=== PATIENT | female | born 1925 | race Caucasian/White ===

== ENCOUNTER 2016-07-07 17:22 | Emergency (ER) | payer MEDICARE ==
[~2016-07-07 17:22] MED LIST: /GLIM2TA; /PANT40TA; /WARF25TA; ACET65TA; CALC600T10; CENTTAB47; COLA100C2; FERR325T; LIPI20TA; METF750T; MILKSUS; OCUVITE; PERC5TAB8; SIMV5TAB2; VITAMIN A&D OINTMENT; metamucil
[2016-07-07] MEDS ORDERED: METO25TA74 (17:42)
[2016-07-07] MEDS ORDERED: PROC20004 (17:42)
[2016-07-07] MEDS ORDERED: CALC1CAP31 (17:42)
[2016-07-07] MEDS ORDERED: FURO40TA2 (17:42)
[2016-07-07] MEDS ORDERED: GLIM2TAB (17:42)
[2016-07-07 18:16] VITALS: O2SAT 96
[2016-07-07] MEDS ORDERED: ACETAMINOPHEN TAB 650MG DOSE (2X325MG) PO ONE (19:45)
[2016-07-07 19:56] LABS: BASO % 0.3 % (0.0-1.0); EOS # 0.1 K/mm3 (0.0-0.50); EOS % 1.5 % (0.0-3.0); LARGE UNSTAINED CELL # 0.1 K/mm3 (0.0-0.4); LARGE UNSTAINED CELL % 2.8 % (0.0-4.0); LYMPH # 0.9 K/mm3 (1.5-4.5); LYMPH % 15.7 % (24.0-44.0); MEAN CORPUSCULAR HEMOGLOBIN 31.2 pg (27.0-33.0); MEAN CORPUSCULAR HGB CONC 31.9 g/dl (32.0-36.5); MEAN CORPUSCULAR VOLUME 97.9 fl (80.0-96.0); MONO # 0.3 K/mm3 (0.0-0.8); MONO % 6.7 % (0.0-5.0); NEUTROPHILS # 3.7 K/mm3 (1.8-7.7); RED CELL DISTRIBUTION WIDTH 14.2 % (11.5-14.5); WHITE BLOOD COUNT 5.1 K/mm3 (4.0-10.0)
[2016-07-07 20:14] LABS: ANION GAP 10 MEQ/L (8-16); BLOOD UREA NITROGEN 67 MG/DL (7-18); CALCIUM LEVEL 8.8 MG/DL (8.8-10.2); CARBON DIOXIDE LEVEL 21 MEQ/L (21-32); CHLORIDE LEVEL 112 MEQ/L (98-107); CREATININE FOR GFR 5.95 MG/DL (0.55-1.02); GLOMERULAR FILTRATION RATE 7.1 (>32); GLUCOSE, FASTING 50 MG/DL (83-110); POTASSIUM SERUM 4.2 MEQ/L (3.5-5.1); SODIUM LEVEL 143 MEQ/L (136-145)
[2016-07-07 20:17] LABS: PLATELET COUNT, AUTOMATED 94 k/mm3 (150-450)
[2016-07-07] MEDS ORDERED: DEXTROSE 50% 50 ML VIAL IV ONE (20:45)
[2016-07-07] MEDS ORDERED: IBUPROFEN 600 MG TAB PO ONE (21:45)
--- NOTE | 2016-07-07 21:50 | REPUSA ---
CT of the chest without contrast Clinical statement: fever, cough. Technique: Multiple axial CT images were obtained with 5 mm cuts through the chest without administra tion of contrast. No comparison is available. Findings: There is no thoracic lymphadenopathy. The visualized portions of the thyroid gland demonst rate a large complex nodule in the left lobe measuring 3.0 x 2.5 cm.. Moderate diffuse atheroscleroti c calcifications are seen throughout the thoracic aorta. There is no evidence of aneurysm. Tracheosto my tube is in place. There are no pericardial or pleural effusions. The lungs are clear. Limited imag ing of the upper abdomen does not demonstrate any acute abnormalities. There are no suspicious osseou s lesions. 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 Impression: 1. No acute infiltrates or effusions. 2. Large left lobe thyroid nodule. 3 Diffuse moderate atherosclerotic calcifications throughout the thoracic aorta. No evidence of aneur ysm. 4. 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
[2016-07-07] MEDS ORDERED: AZIT250T3 PO (22:23)
[2016-07-07] MEDS ORDERED: AZITHROMYCIN 250 MG TAB PO ONE (22:30)
[2016-07-07 22:33] VITALS: BP 129/61
--- NOTE | 2016-07-08 08:17 | REP ---
REASON: Cough and dyspnea. COMPARISON: Frontal view obtained as part of an abdominal series 12/01/2008. AP technique was utilized in obtaining the frontal radiograph. The technique utilized in obtaining the radiograph has magnified the cardiac silhouette and accentuated the interstitial markings. There is a tracheostomy tube in place status quo. The cardiomediastinal silhouette is unchanged. Mild cardiomegaly cannot be ruled out due to technique. The lung lind are clear and stable showing no evidence of an acute patchy parenchymal opacity or pleural effusion. The osseous structures are unchanged. IMPRESSION: No evidence of acute cardiopulmonary disease. Signed by Darian Nichols DO 07/08/2016 08:49 A
--- NOTE | 2016-07-08 14:58 | ED PDOC ---
Post-Departure Follow-Up dr mendoza faxed formal report of ct chest for fu Matti Sadler MD Jul 08, 2016 14:58
--- NOTE | 2016-07-09 09:07 | ECGEPIP ---
Stationary ECG Study [facility] - ED Test Date: 2016-07-07 Pat Name: ASPEN TERRELL Department: Room: - Gender: F [employer]: florian : 1925 Requested By: ANAM Cunningham Order Number: [id number] Reading MD: Toya Baker Measurements Intervals Walker Rate: 95 P: 50 WV: 203 QRS: -7 QRSD: 137 T: 14 QT: 397 QTc: 500 Interpretive Statements SINUS RHYTHM INDETERMINATE AXIS RIGHT BUNDLE BRANCH BLOCK NO PRIOR FOR COMPARISON Electronically Signed On 07-09-2016 9:06:36 EDT by Toya Baker
== END 2016-07-07 22:55 | disposition home or self-care (01) ==
LOC: M ED 18:40
DX: J06.9 Acute upper respiratory infection, unspecified (principal); R50.9 Fever, unspecified; E11.649 Type 2 diabetes mellitus with hypoglycemia without coma; N18.9 Chronic kidney disease, unspecified

== ENCOUNTER → 2016-09-22 | Outpatient (REF) | payer MEDICARE ==
[~2016-09-22] MED LIST changes: +AZIT-12 PO; +CALC1CAP31; +FURO40TA2; +GLIM2TAB; +METO1TAB32; +PROC20004
== END ==
LOC: M LAB REF 13:20
PROVIDERS: ATTEND Internal Medicine Nephrology
DX: N18.5 Chronic kidney disease, stage 5 (principal); R30.0 Dysuria

== ENCOUNTER → 2017-01-15 | Outpatient (REF) | payer MEDICARE | LOC: M LAB REF 13:57 | PROVIDERS: ATTEND Internal Medicine Nephrology | DX: N18.9 Chronic kidney disease, unspecified (principal); D63.1 Anemia in chronic kidney disease ==